=== PATIENT | male | born 1975 | race Caucasian/White ===

== ENCOUNTER 2023-12-17 19:34 | Emergency (ER) | payer OTHER ==
[~2023-12-17] VITALS: Ht 165.1 cm; Wt 68.2 kg
[2023-12-17 19:40] VITALS: TEMP 99.2
[2023-12-17 20:11] LABS: BASO % 0.4 % (0.0-2.0); EOS # 0.2 K/mm3 (0.0-0.7); EOS % 2.5 % (0.0-4.0); GRAN # 3.3 K/mm3 (1.4-6.5); GRAN % 48.9 % (42.2-75.2); HEMATOCRIT 43.7 % (42.0-52.0); HEMOGLOBIN 14.6 g/dl (13.5-18.0); LYMPH # 2.7 K/mm3 (1.2-3.4); LYMPH % 40.8 % (20.0-51.0); MEAN CELL VOLUME 90 fl (80.0-100.0); MEAN CORPUSCULAR HEMOGLOBIN 30 pg (27-31); MEAN CORPUSCULAR HGB CONC 33 g/dl (33.0-37.0); MEAN PLATELET VOLUME 9.4 fl (7.4-10.4); MONO # 0.5 K/mm3 (0.1-0.6); MONO % 7.3 % (1.7-9.3); PLATELET COUNT 225 K/mm3 (130-400); RED BLOOD COUNT 4.87 M/mm3 (4.20-5.60); REDCELL DISTRIBUTION WIDTH-CV 11.8 % (11.5-14.5)
[2023-12-17 20:29] LABS: PROTHROMBIN TIME 11.2 SECONDS (9.7-12.8)
[2023-12-17 20:31] LABS: ALBUMIN 4.3 g/dL (3.5-5.0); BILIRUBIN,TOTAL 0.4 mg/dL (0.2-1.2); CALCIUM 9.4 mg/dL (8.4-10.2); CREATININE, serum 0.93 mg/dL (0.72-1.25); POTASSIUM 3.9 mEq/L (3.5-4.5); TOTAL PROTEIN 7.2 g/dl (6.2-8.1)
[2023-12-17 20:32] LABS: PARTIAL THROMBOPLASTIN TIME 35.1 SECONDS (26.0-37.0)
[2023-12-17 20:36] LABS: D-DIMER < 200.00 ng/mLDDu (200-230)
[2023-12-17 20:37] LABS: TROPONIN-I 0.016 ng/mL (0.00-0.033)
[2023-12-17] MEDS ORDERED: Sucralfate Susp 1 GM/10 ML UD PO ONE (21:00)
[2023-12-17 22:01] VITALS: BP 120/80; PULSE 60
== END 2023-12-17 22:01 | disposition home or self-care (01) ==
LOC: COL.ER 19:34
PROVIDERS: Emergency Medicine
DX: R07.89 Other chest pain (principal)